=== PATIENT | female | born 1995 | race Caucasian/White ===

== ENCOUNTER → 2016-12-13 | Outpatient (CLI) | payer OTHER ==
[~2016-12-13] MED LIST: ACET50TA PO; IBUP60TA PO; PRENTAB43 PO
--- NOTE | 2016-12-14 04:07 | REP ---
Clinical: Anatomical evaluation. Comparison: 11/14/2016 . Findings: Examination demonstrates a single live intrauterine in cephalic presentation. motion is identified by technologist. Placenta is noted anteriorly and grade one without evidence for placenta previa or abruption. Amniotic fluid volume is normal. Cervix measures 3.9 cm in length and appears closed. No evidence for nuchal cord. Gestational age by LMP 25 weeks 1 day with SIMEON 03/27/2017 . Gestational age by current measurements 25 weeks 0 days with SIMEON is 03/28/2017 . FHR equals 145 beats per minute. BPD 6.4 cm 25 weeks 6 days HC 22.9 cm 24 weeks 6 days AC 20.2 cm 24 weeks 6 days FL 4.5 cm 24 weeks 5 days HL 4.1 cm 24 weeks 4 days HC/AC ratio 1.13 Estimated weight 738 grams ( 36th percentile). Anatomical assessment demonstrates normal structures including cranium, choroid plexus, cavum, lungs, four-chamber heart, diaphragm, stomach, cord insertion/three-vessel cord, kidneys/bladder, spine, and extremities. Impression: Single live intrauterine in cephalic presentation demonstrating appropriate interval growth. In conjunction with prior examination anatomical assessment is complete and normal. Signed by Krish Villegas MD 12/14/2016 03:58 A
== END ==
LOC: M RAD 14:43
PROVIDERS: ATTEND Obstetrics & Gynecology
DX: Z34.82 Encounter for supervision of other normal pregnancy, second trimester (principal)

== ENCOUNTER → 2016-12-18 | Outpatient (CLI) | payer OTHER ==
[2016-12-18 15:49] LABS: MEAN CORPUSCULAR HGB CONC 33.4 g/dl (32.0-36.5); MEAN CORPUSCULAR VOLUME 95.8 fl (80.0-96.0); RED CELL DISTRIBUTION WIDTH 12.8 % (11.5-14.5); WHITE BLOOD COUNT 11.2 K/mm3 (4.0-10.0)
== END ==
LOC: M LAB 13:59
PROVIDERS: ATTEND Obstetrics & Gynecology
DX: Z34.02 Encounter for supervision of normal first pregnancy, second trimester (principal)